=== PATIENT | female | born 1950 | race Caucasian/White ===

== ENCOUNTER 2017-04-27 06:13 | Day surgery (SDC) | payer MEDICARE, OTHER ==
[2015-11-03 06:21] VITALS: BMI 27.7
[2017-04-27] MEDS ORDERED: Propofol 10 mg/ml Inj (20 ML) ONE (08:00)
[2017-04-27] MEDS ORDERED: Midazolam 2 MG/2 ML VIAL ONE (08:00)
[2017-04-27] MEDS ORDERED: Lidocaine Hydrochloride 5 ML INJ ONE (08:03)
[2017-04-27] MEDS ORDERED: Phenylephrine 10 mg/ml Inj ONE (08:03)
[2017-04-27 09:09] VITALS: TEMP 97
[2017-04-27 11:21] VITALS: BP 128/66; PULSE 62; RESP 18; O2SAT 96
== END 2017-04-27 11:15 | disposition home or self-care (01) ==
LOC: C.ENDO 06:13
PROVIDERS: ATTEND Internal Medicine Gastroenterology
DX: Z12.11 Encounter for screening for malignant neoplasm of colon (principal); K21.0 Gastro-esophageal reflux disease with esophagitis; K44.9 Diaphragmatic hernia without obstruction or gangrene; K64.0 First degree hemorrhoids; K57.30 Diverticulosis of large intestine without perforation or abscess without bleeding; K29.50 Unspecified chronic gastritis without bleeding
CPT/HCPCS: 43239; 45380; 88305; J2250; J2370; J2704; J3010

== ENCOUNTER 2017-12-17 09:37 | Emergency (ER) | payer MEDICARE, OTHER ==
[2017-12-17 09:38] VITALS: BMI 27.7
[2017-12-17 09:49] VITALS: BP 147/83; PULSE 80; RESP 18; TEMP 98.8; O2SAT 97
--- NOTE | 2017-12-17 10:23 | C.PDOC ---
History Of Present Illness 67 years old female with PMHx of HTN and rheumatoid arthritis presents to ED for complaints of urine frequency, hematuria, dysuria, and lower abdominal pressure. Denies back pain, nausea, vomiting, fever, or chills. Time Seen by Provider: 12/17/17 09:49 Chief Complaint (Nursing): Female Genitourinary History Per: Patient History/Exam Limitations: no limitations Onset/Duration Of Symptoms: Hrs Current Symptoms Are (Timing): Still Present Quality Of Discomfort: Pressure Associated Symptoms: Urinary Symptoms. denies: Fever, Chills, Nausea, Vomiting, Diarrhea Alleviating Factors: None Recent travel outside of the [place]: No Abnormal Vaginal Bleeding: Yes Past Medical History Reviewed: Historical Data, Nursing Documentation, Vital Signs Vital Signs: Last Vital Signs Temp 98.8 F 12/17/17 09:39 Pulse 80 12/17/17 09:39 Resp 18 12/17/17 09:39 BP 147/83 12/17/17 09:39 Pulse Ox 97 12/17/17 09:39 - Medical History PMH: Diverticulitis, HTN, Hypercholesterolemia, Rheumatoid Arthritis Surgical History: Cholecystectomy, Endoscopy Family History: States: Unknown Family Hx - Social History Hx Tobacco Use: No Hx Alcohol Use: No Hx Substance Use: No - Immunization History Hx Tetanus Toxoid Vaccination: No Hx Influenza Vaccination: Yes Hx Pneumococcal Vaccination: No Review Of Systems Constitutional: Negative for: Fever, Chills Gastrointestinal: Positive for: Other (Lower abdominal pressure ). Negative for: Nausea, Vomiting, Diarrhea Genitourinary: Positive for: Dysuria, Frequency, Hematuria. Negative for: Vaginal Discharge, Vaginal Bleeding Musculoskeletal: Negative for: Back Pain Skin: Negative for: Rash Neurological: Negative for: Weakness, Numbness Physical Exam - Physical Exam Appears: Well, Non-toxic, No Acute Distress Skin: Normal Color, Warm, Dry, No Rash Head: Atraumatic, Normacephalic Eye(s): bilateral: Normal Inspection, PERRL, EOMI Oral Mucosa: Moist Neck: Normal ROM, Supple Chest: Symmetrical, No Tenderness Cardiovascular: Rhythm Regular, No Murmur Respiratory: Normal Breath Sounds, No Decreased Breath Sounds, No Rales, No Rhonchi, No Wheezing Gastrointestinal/Abdominal: Normal Exam, Bowel Sounds (Active ), Soft, No Tenderness, No Guarding, No Rebound Back: Normal Inspection, No CVA Tenderness Extremity: Bilateral: Atraumatic, Normal Color And Temperature, Normal ROM Pulses: Left Radial: Normal, Right Radial: Normal Neurological/Psych: Oriented x3, Normal Speech Gait: Steady ED Course And Treatment O2 Sat by Pulse Oximetry: 97 (RA) Pulse Ox Interpretation: Normal Medical Decision Making Medical Decision Making: Plan: * Urine culture * Urinalysis * 1152 received call from pharmacy, macrobid not covered and pt unable to afford payment. rx changed to bactrim ds bid x 7 days. Disposition Counseled Patient/Family Regarding: Studies Performed, Diagnosis, Need For Followup, Rx Given - Disposition Referrals: Chauncey Burrell MD [Staff Provider] - Disposition: HOME/ ROUTINE Disposition Time: 10:46 Condition: GOOD Additional Instructions: Christina antibiticos hasta completar. Ibis lquidos en exceso elmira el agua o el jugo de arndano. Seguimiento con el Dr. Burrell en unos pocos gunderson. Regrese a la francisco de emergencias para el dolor abdominal. Fiebre, vmitos o cualquier otra inquietud. Take antibiotics until completed. Drink increased fluids such as water or cranberry juice. Follow up with Dr Burrell in a few days. Return to ER for abdominal pain. fever, vomiting or any other concerns. 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 - Scribe Statement The provider has reviewed the documentation as recorded by the Scribe Ant Madsen All medical record entries made by the Scribe were at my direction and personally dictated by me. I have reviewed the chart and agree that the record accurately reflects my personal performance of the history, physical exam, medical decision making, and the department course for this patient. I have also personally directed, reviewed, and agree with the discharge instructions and disposition.[email or web address]
[2017-12-17 10:39] LABS: URINE BACTERIA OCC (<OCC); URINE BILIRUBIN NEGATIVE (NEGATIVE); URINE BLOOD 3+ (NEGATIVE); URINE CLARITY Hazy (Clear); URINE COLOR Yellow (YELLOW); URINE GLUCOSE (UA) NORMAL (Normal); URINE LEUKOCYTE ESTERASE 3+ Leu/uL (Negative); URINE PROTEIN 2+ mg/dL (NEGATIVE); URINE UROBILINOGEN NORMAL mg/dL (0.2-1.0); WBC CLUMPS MOD /hpf
== END 2017-12-17 11:02 | disposition home or self-care (01) ==
LOC: C.ER 09:37
DX: N30.90 Cystitis, unspecified without hematuria (principal); I10 Essential (primary) hypertension; E78.00 Pure hypercholesterolemia, unspecified